=== PATIENT | female | born 1990 | race Caucasian/White ===

== ENCOUNTER 2017-12-04 11:16 | Outpatient (CLI) | payer OTHER ==
[~2017-12-04] VITALS: Ht 160 cm; Wt 72.3 kg
[2017-12-04 11:23] VITALS: BP 137/37
[2017-12-04] MEDS ORDERED: ACET325T14 PO (11:23)
[2017-12-04] MEDS ORDERED: PREN1TAB60 PO (11:23)
== END 2017-12-04 12:06 | disposition home or self-care (01) ==
LOC: LDOP 11:16
PROVIDERS: ATTEND Obstetrics & Gynecology
DX: O26.893 Other specified pregnancy related conditions, third trimester (principal); R10.9 Unspecified abdominal pain; Z3A.37 37 weeks gestation of pregnancy
CPT/HCPCS: 59025; 99201; G0463